=== PATIENT | male | born 1985 | race Two or more races ===

== ENCOUNTER 2025-04-01 14:38 | Emergency (ER) | payer OTHER ==
[~2025-04-01] VITALS: Ht 175.3 cm; Wt 77.3 kg
[2025-04-01 15:00] VITALS: TEMP 98.605328
[2025-04-01 15:06] LABS: PLATELET COUNT (AUTO) 322 K/uL (150-450); RED BLOOD CELL COUNT(AUTO) 4.18 MIL/uL (4.50-5.90); RED CELL DISTRIBUTION WIDTH 14.0 % (11.5-14.5); WHITE BLOOD COUNT (AUTO) 10.2 K/uL (4.5-11.0)
[2025-04-01 15:16] LABS: CALCIUM, TOTAL 9.2 mg/dL (8.8-10.5); CREATININE 1.15 mg/dL (0.60-1.30); GLOMERULAR FILTR. RATE CALC > 60 mL/min (>60); GLUCOSE,RANDOM 90 mg/dL (70-110); SODIUM SERUM 139 mmol/L (136-145); UREA NITROGEN, BLOOD 21 mg/dL (7-18)
[2025-04-01 15:21] LABS: ASPARTATE AMINOTRANSFERASE 24.0 U/L (15-37); TOTAL PROTEIN, SERUM 8.0 g/dL (6.4-8.2)
[2025-04-01] MEDS ORDERED: 0.9% SODIUM CHLORIDE 10 ML SYRINGE IVP ONE (15:37)
[2025-04-01] MEDS ORDERED: IOHEXOL 350 MG/ML 100 ML VIAL ONE (15:37)
[2025-04-01] MEDS ORDERED: SODIUM CHLORIDE 0.9% 100 ML ONE (15:37)
[2025-04-01] MEDS: MORPHINE SULFATE 2 MG/ML SYRINGE IVP ONE ×2 (16:07→17:13)
[2025-04-01 17:59] LABS: APPEARANCE,URINE CLEAR (CLEAR); GLUCOSE, URINE (UA) NEGATIVE (NEGATIVE); LEUKOCYTE ESTERASE ,URINE NEGATIVE (NEGATIVE); NITRATE,URINE NEGATIVE (NEGATIVE); OCCULT BLOOD,URINE NEGATIVE (NEGATIVE); SPECIFIC GRAVITIY, URINE 1.016 (1.003-1.030)
[2025-04-01 18:34] VITALS: BP 102/65; PULSE 60; RESP 18; O2SAT 97
[2025-04-01] MEDS: DOCUSATE SODIUM 100 MG CAPSULE PO ONE (18:49)
== END 2025-04-01 19:18 | disposition home or self-care (01) ==
LOC: EMS 14:38
DX: K59.00 Constipation, unspecified (principal); R10.32 Left lower quadrant pain
CPT/HCPCS: 99285; 74177; 96374; 80048; 80076; 81003; 83690; 85025; 36415; 96376; Q9967; J2270; J7050